=== PATIENT | male | born 1960 | race Caucasian/White ===

== ENCOUNTER 2017-11-12 11:30 | Observation (INO) | payer OTHER ==
[~2017-11-12] VITALS: Ht 181.6 cm; Wt 111.0 kg
[2017-11-12] VITALS (9 sets, daily range): BP systolic 144–183; BP diastolic 90–101; PULSE 69–89; RESP 16–20; TEMP 98.4–98.6; O2SAT 96–99
--- NOTE | 2017-11-12 11:41 | PD ---
HPI Chief Complaint: Pain: Acute or Chronic Time Seen by Provider: 11:39 Travel History International Travel<30 days: No Contact w/Intl Traveler<30days: No Traveled to known affect area: No History of Present Illness HPI 57 year old male came to the emergency room with history of left-sided chest pain especially with deep breath for past 2 days. Has also been having radiating pain down his left shoulder and left arm. Patient says that the left arm pain is not new for him. Years ago he had injury during playing baseball and his arm has always bothered him. However since he started getting the chest pain that's what concerned him. Pain is like a pressure when he takes a deep breath and is almost all over his left chest. Patient has history of high cholesterol and high blood pressure and he takes these medications once in 4-5 days in a very noncompliant fashion. His vital signs were relatively stable. He shouldn't had a stress test 15 years ago when it was normal. Nothing since then. [facility] Past Medical History Narrative Medical List of his past medical, surgical, social and family history is reviewed from the nursing note. Cardiovascular Problems: Yes (EXTENSIVE FAMILY H/O [place]) Social History Tobacco Use: Yes Allergies-Medications (Allergen,Severity, Reaction): Coded Allergies: No Known Allergies (Unverified , 11/12/17) Comments No known drug allergies. Reported Meds & Prescriptions Reported Meds & Active Scripts Active Reported Aspirin 325 Mg Tab 325 Mg PO DAILY Amlodipine (Amlodipine Besylate) 5 Mg Tab 5 Mg PO DAILY Lipitor (Atorvastatin Calcium) 10 Mg Tab 10 Mg PO DIRECTED Narrative Medication list of his home medications reviewed from the nursing note. Review of Systems Except as stated in HPI: all other systems reviewed are Neg Cardiovascular: Positive: Chest Pain or Discomfort Physical Exam Narrative GENERAL: Awake, alert, anxious SKIN: Focused skin assessment warm/dry. HEAD: Atraumatic. Normocephalic. EYES: Pupils equal and round. No scleral icterus. No injection or drainage. ENT: No nasal bleeding or discharge. Mucous membranes pink and moist. NECK: Trachea midline. No JVD. CARDIOVASCULAR: Regular rate and rhythm. No murmur appreciated. RESPIRATORY: No accessory muscle use. Clear to auscultation. Breath sounds equal bilaterally. GASTROINTESTINAL: Abdomen soft, non-tender, nondistended. Hepatic and splenic margins not palpable. MUSCULOSKELETAL: No obvious deformities. No clubbing. No cyanosis. No edema. NEUROLOGICAL: Awake and alert. No obvious cranial nerve deficits. Motor grossly within normal limits. Normal speech. PSYCHIATRIC: Appropriate mood and affect; insight and judgment normal. Data Data Last Documented VS Orders Orders Electrocardiogram (11/12/17 11:49) Basic Metabolic Panel (Bmp) (11/12/17 11:49) Ckmb (Isoenzyme) Profile (11/12/17 11:49) Complete Blood Count With Diff (11/12/17 11:49) D-Dimer (11/12/17 11:49) Magnesium (Mg) (11/12/17 11:49) Prothrombin Time / Inr (Pt) (11/12/17 11:49) Troponin I (11/12/17 11:49) Chest, Single Ap (11/12/17 11:49) Ecg Monitoring (11/12/17 11:49) Bilateral Bp Monitoring (11/12/17 11:49) Iv Access Insert/Monitor (11/12/17 11:49) Oximetry (11/12/17 11:49) Oxygen Administration (11/12/17 11:49) Sodium Chloride 0.9% Flush (Ns Flush) (11/12/17 12:00) CKMB (11/12/17 12:05) CKMB% (11/12/17 12:05) Amlodipine (Norvasc) (11/12/17 13:15) Admit Order (Ed Use Only) (11/12/17 14:04) Labs Laboratory Tests Test 11/12/17 12:05 White Blood Count 6.1 TH/MM3 Red Blood Count 5.44 MIL/MM3 Hemoglobin 15.6 GM/DL Hematocrit 47.1 % Mean Corpuscular Volume 86.6 FL Mean Corpuscular Hemoglobin 28.7 PG Mean Corpuscular Hemoglobin Concent 33.2 % Red Cell Distribution Width 12.7 % Platelet Count 227 TH/MM3 Mean Platelet Volume 7.0 FL Neutrophils (%) (Auto) 67.4 % Lymphocytes (%) (Auto) 23.8 % Monocytes (%) (Auto) 6.2 % Eosinophils (%) (Auto) 0.9 % Basophils (%) (Auto) 1.7 % Neutrophils # (Auto) 4.1 TH/MM3 Lymphocytes # (Auto) 1.4 TH/MM3 Monocytes # (Auto) 0.4 TH/MM3 Eosinophils # (Auto) 0.1 TH/MM3 Basophils # (Auto) 0.1 TH/MM3 CBC Comment DIFF FINAL Differential Comment Prothrombin Time 10.4 SEC Prothromb Time International Ratio 1.0 RATIO D-Dimer Quantitative (PE/DVT) 0.37 MG/L FEU Blood Urea Nitrogen 12 MG/DL Creatinine 0.97 MG/DL Random Glucose 95 MG/DL Calcium Level 9.1 MG/DL Magnesium Level 2.2 MG/DL Sodium Level 138 MEQ/L Potassium Level 4.0 MEQ/L Chloride Level 103 MEQ/L Carbon Dioxide Level 26.2 MEQ/L Anion Gap 9 MEQ/L Estimat Glomerular Filtration Rate 79 ML/MIN Total Creatine Kinase 241 U/L Creatine Kinase MB 3.2 NG/ML Troponin I LESS THAN 0.02 NG/ML MDM Medical Decision Making Medical Screen Exam Complete: Yes Emergency Medical Condition: Yes Medical Record Reviewed: Yes Interpretation(s) Twelve-lead EKG was reviewed by me. Normal sinus rhythm, normal axis, right bundle branch block. Heart rate of 73 bpm. Differential Diagnosis ACS, non-STEMI, PE Narrative Course 1:16 PM blood test results of back including the d-dimer. They're all negative. However given the kind of chest pain, patient's age and no recent stress test I have decided to admit him to the chest pain center so that he can be seen by the educational psychologist to rule out ACS. Patient agrees. When I went to see him his blood pressure was 180 systolic. I've ordered amlodipine 5 mg for him. Procedures EKG Prior to Arrival: No Diagnosis Primary Impression: Chest pain Qualified Codes: R07.9 - Chest pain, unspecified Additional Impressions: Hypertension Qualified Codes: I10 - Essential (primary) hypertension Noncompliance with medication regimen Admitting Information Admitting Physician Requests: Observation Emma Corey MD Nov 12, 2017 11:41
[2017-11-12] MEDS ORDERED: ASPI-183 PO (11:45)
[2017-11-12] MEDS ORDERED: AMLO5TAB2 PO (11:45)
[2017-11-12] MEDS ORDERED: LIPI10TA PO (11:45)
[2017-11-12] MEDS ORDERED: SODIUM CHLORIDE 0.9% FLUSH 10 ML FLUSH IVF PRN (12:00)
--- NOTE | 2017-11-12 12:09 | RADRPT ---
EXAM DATE/TIME: 11/12/2017 11:52 [facility] COMPARISON: No previous studies available for comparison. INDICATIONS : Chest discomfort for 1 week. MEDICAL HISTORY : None. SURGICAL HISTORY : None. ENCOUNTER: Initial ACUITY: 1 week PAIN SCORE: 3/10 LOCATION: Bilateral chest FINDINGS: A single view of the chest demonstrates the lungs to be symmetrically aerated without evidence of mas s, infiltrate or effusion. The cardiomediastinal contours are unremarkable. Osseous structures are intact. CONCLUSION: Normal examination. Fransisco Bridges Jr., MD on November 12, 2017 at 12:06 Board Certified Radiologist. This report was verified electronically.
[2017-11-12 12:20] LABS: AUTOMATED NEUTROPHIL # 4.1 TH/MM3 (1.8-7.7); BASOPHIL # 0.1 TH/MM3 (0-0.2); BASOPHIL % 1.7 % (0.0-2.0); EOSINOPHIL # 0.1 TH/MM3 (0-0.4); EOSINOPHIL % 0.9 % (0.0-4.0); HEMATOCRIT 47.1 % (39.0-51.0); HEMO FLAGS DIFF FINAL; LYMPH % 23.8 % (9.0-44.0); LYMPHOCYTE # 1.4 TH/MM3 (1.0-4.8); MEAN CELL VOLUME 86.6 FL (80.0-100.0); MEAN CORPUSCULAR HEMOGLOBIN 28.7 PG (27.0-34.0); MEAN CORPUSCULAR HGB CONC 33.2 % (32.0-36.0); MONO % 6.2 % (0.0-8.0); NEUT % 67.4 % (16.0-70.0); PLATELET COUNT 227 TH/MM3 (150-450); RED BLOOD COUNT 5.44 MIL/MM3 (4.50-5.90); RED CELL DISTRIBUTION WIDTH 12.7 % (11.6-17.2); WHITE BLOOD COUNT 6.1 TH/MM3 (4.0-11.0)
[2017-11-12 12:33] LABS: CHLORIDE 103 MEQ/L (98-107); SODIUM (NA) 138 MEQ/L (136-145)
[2017-11-12 12:37] LABS: PROTHROMBIN TIME - PATIENT 10.4 SEC (9.8-11.6)
[2017-11-12 12:38] LABS: ANION GAP 9 MEQ/L (5-15); BICARBONATE 26.2 MEQ/L (21.0-32.0); BLOOD UREA NITROGEN 12 MG/DL (7-18); MAGNESIUM 2.2 MG/DL (1.5-2.5)
[2017-11-12 12:41] LABS: GLOMERULAR FILTRATION RATE 79 ML/MIN (>89)
[2017-11-12 12:44] LABS: CREATINE KINASE 241 U/L (39-308)
[2017-11-12 12:57] LABS: CKMB 3.2 NG/ML (0.5-3.6)
--- NOTE | 2017-11-12 13:05 | EKG ---
Date Performed: 11/12/2017 Time Performed: 12:07:30 PTAGE: 57 years EKG: Sinus rhythm INFERIOR MYOCARDIAL INFARCTION ABNORMAL ECG NO PREVIOUS TRACING DOCTOR: Kenyon Bruno Interpretating Date/Time 11/12/2017 13:03:52
[2017-11-12] MEDS ORDERED: amLODIPine BESYLATE 5 MG TAB PO ONE ×2 (13:15→15:15)
[2017-11-12] MEDS ORDERED: MORPHINE SULFATE 4 MG/ML INJ IV PUSH PRN (14:15)
[2017-11-12] MEDS ORDERED: ONDANSETRON HCL 4 MG/2 ML VIAL IV PUSH PRN (14:15)
[2017-11-12] MEDS ORDERED: SODIUM CHLORIDE 0.9% FLUSH 10 ML FLUSH IV FLUSH PRN (14:15)
[2017-11-12] MEDS ORDERED: ACETAMINOPHEN/HYDROcodone 325 MG/7.5 MG TAB PO PRN (14:15)
[2017-11-12] MEDS ORDERED: NITROGLYCERIN 0.4 MG SL 25 TABS/BTL SL PRN (14:15)
[2017-11-12] MEDS ORDERED: ACETAMINOPHEN 500 MG CPLT PO PRN (14:15)
[2017-11-12] MEDS ORDERED: TEMAZEPAM 15 MG CAP PO PRN (14:15)
--- NOTE | 2017-11-12 14:46 | HHI.HP ---
[facility] Primary Care Physician Unknown Admission Diagnosis chest pain, rule out ACS Diagnoses: (1) Chest pain Diagnosis: Principal (2) Accelerated hypertension Diagnosis: Principal Chief Complaint: Chest pain Travel History International Travel<30 Days: No Contact w/Intl Traveler <30 Da: No Traveled to Known Affected Are: No History of Present Illness 57 year-old male with known history of hypertension, hyperlipidemia who presented to hospital because of chest discomfort. Patient indicates that he started developing chest discomfort on Saturday night after he had been fishing over the weekend as well as putting up\at his house. He indicates that the pain originates in his left scapular region and radiates out to his anterior chest, into his left shoulder and down his left arm. He describes it as a dull ache which is a 1/10 on a pain scale. Patient states that the pain was not antagonized with any movement or exertion. States that is worse when he takes a deep breath. Patient denies any nausea, vomiting, diaphoresis, shortness of breath, dyspnea, lightheadedness, dizziness. Because the pain would not go away he came to emergency department for evaluation. On presentation he was noted to have accelerated hypertension. He indicates that last cardiology workup that he had done was 15 years ago in the [facility]. At that time he had an exercise stress test which was normal. At the present time he still experiencing the pain whenever he takes a deep breath. It was discussed with the patient, observation into the hospital with stress test. Patient is in agreement at this time. Review of Systems Cardiovascular: COMPLAINS OF: Chest pain Musculoskeletal: COMPLAINS OF: Joint pain Except as stated in HPI: all other systems reviewed are Neg Past Family Social History Past Medical History Hypertension Hyperlipidemia Past Surgical History No previous surgeries Reported Medications Reported Meds & Active Scripts Active Reported Aspirin 325 Mg Tab 325 Mg PO DAILY Amlodipine (Amlodipine Besylate) 5 Mg Tab 5 Mg PO DAILY Lipitor (Atorvastatin Calcium) 10 Mg Tab 10 Mg PO DIRECTED Allergies: Coded Allergies: No Known Allergies (Unverified , 11/12/17) Family History Reviewed is significant for father having heart disease with bypass surgery at age 65. Mother with diabetes and heart disease. Social History Patient does drink 1 alcoholic beverage daily. Denies any tobacco or illicit drugs Physical Exam Vital Signs Vital Signs Date Time Temp Pulse Resp B/P (MAP) Pulse Ox O2 Delivery O2 Flow Rate FiO2 11/12/17 13:59 73 16 171/96 (121) 98 Nasal Cannula 2.00 11/12/17 13:42 170/95 (120) 11/12/17 12:25 76 16 181/91 (121) 99 Nasal Cannula 2.00 11/12/17 12:24 16 99 Nasal Cannula 2.00 11/12/17 12:00 71 16 144/92 (109) 99 Nasal Cannula 2.00 183/101 (128) 11/12/17 11:54 98 Nasal Cannula 2.00 11/12/17 11:39 18 11/12/17 11:32 98.6 69 18 167/90 (115) 98 Physical Exam GENERAL: Well-developed, well-nourished, in no acute distress. alert and orientated HEENT: Head is normocephalic without any lesions or masses noted. Facial features are symmetric. Eyes: Pupils equal round reactive to light. Extraocular muscles are intact. Conjunctivae were clear. Oropharyngeal: Pharynx without any erythema edema. Tongue is midline without deviation. Buccal mucosa is moist without any masses or lesions NECK: Supple without any masses. Trachea midline no deviation. No JVD, no bruits are appreciated CARDIAC: Regular rhythm, regular rate. S1/S2 are heard. No murmurs gallops or rubs. LUNGS: Clear to auscultation bilaterally. No wheeze, rhonchi or rales. No use of accessory muscles on inspiration or expiration. ABDOMEN: Soft, nontender. Nondistended. Bowel sounds heard in all 4 quadrants. No organomegaly or masses. Negative rebound, negative guarding EXTREMITIES: No edema, pulses are equal bilaterally. No cyanosis or clubbing NEUROLOGY: Mood and affect appear appropriate. Cranial nerves II through XII grossly intact. Muscle strength 5/5 in upper and lower extremities bilaterally. Deep tendon reflexes are 2+ in upper and lower extremities bilaterally. Laboratory Laboratory Tests Test 11/12/17 12:05 White Blood Count 6.1 Red Blood Count 5.44 Hemoglobin 15.6 Hematocrit 47.1 Mean Corpuscular Volume 86.6 Mean Corpuscular Hemoglobin 28.7 Mean Corpuscular Hemoglobin Concent 33.2 Red Cell Distribution Width 12.7 Platelet Count 227 Mean Platelet Volume 7.0 Neutrophils (%) (Auto) 67.4 Lymphocytes (%) (Auto) 23.8 Monocytes (%) (Auto) 6.2 Eosinophils (%) (Auto) 0.9 Basophils (%) (Auto) 1.7 Neutrophils # (Auto) 4.1 Lymphocytes # (Auto) 1.4 Monocytes # (Auto) 0.4 Eosinophils # (Auto) 0.1 Basophils # (Auto) 0.1 CBC Comment DIFF FINAL Differential Comment Prothrombin Time 10.4 Prothromb Time International Ratio 1.0 D-Dimer Quantitative (PE/DVT) 0.37 Blood Urea Nitrogen 12 Creatinine 0.97 Random Glucose 95 Calcium Level 9.1 Magnesium Level 2.2 Sodium Level 138 Potassium Level 4.0 Chloride Level 103 Carbon Dioxide Level 26.2 Anion Gap 9 Estimat Glomerular Filtration Rate 79 Total Creatine Kinase 241 Creatine Kinase MB 3.2 Troponin I LESS THAN 0.02 Result Diagram: 11/12/17 1205 11/12/17 1205 Imaging Last Impressions Chest X-Ray 11/12/17 1149 Signed Impressions: Service Date/Time: Sunday, November 12, 2017 11:52 - CONCLUSION: Normal examination. Fransisco Bridges Jr., MD [place] VTE Risk Assessment Caprini VTE Risk Assessment: Mod/High Risk (score >= 2) Caprini Risk Assessment Model Point Value = 1 Point Value = 2 Point Value = 3 Point Value = 5 Age 41-60 Minor surgery BMI > 25 kg/m2 Swollen legs Varicose veins or History of unexplained or recurrent spontaneous Oral contraceptives or hormone replacement Sepsis (< 1 month) Serious lung disease, including pneumonia (< 1 month) Abnormal pulmonary function Acute myocardial infarction Congestive heart failure (< 1 month) History of inflammatory bowel disease Medical patient at bed rest Age 61-74 Arthroscopic surgery Major open surgery (> 45 min) Laparoscopic surgery (> 45 min) Malignancy Confined to bed (> 72 hours) Immobilizing plaster cast Central venous access Age >= 75 History of VTE Family history of VTE Factor V Leiden Prothrombin [id number] Lupus anticoagulant Anticardiolipin antibodies Elevated serum homocysteine Heparin-induced thrombocytopenia Other congenital or acquired thrombophilia Stroke (< 1 month) Elective arthroplasty Hip, pelvis, or leg fracture Acute spinal cord injury (< 1 month) Prophylaxis Regimen Total Risk Factor Score Risk Level Prophylaxis Regimen 0-1 Low Early ambulation 2 Moderate Order ONE of the following: *Sequential Compression Device (SCD) *Heparin 5000 units SQ BID 3-4 Higher Order ONE of the following medications: *Heparin 5000 units SQ TID *Enoxaparin/Lovenox 40 mg SQ daily (WT < 150 kg, CrCl > 30 mL/min) *Enoxaparin/Lovenox 30 mg SQ daily (WT < 150 kg, CrCl > 10-29 mL/min) *Enoxaparin/Lovenox 30 mg SQ BID (WT < 150 kg, CrCl > 30 mL/min) AND/OR *Sequential Compression Device (SCD) 5 or more Highest Order ONE of the following medications: *Heparin 5000 units SQ TID (Preferred with Epidurals) *Enoxaparin/Lovenox 40 mg SQ daily (WT < 150 kg, CrCl > 30 mL/min) *Enoxaparin/Lovenox 30 mg SQ daily (WT < 150 kg, CrCl > 10-29 mL/min) *Enoxaparin/Lovenox 30 mg SQ BID (WT < 150 kg, CrCl > 30 mL/min) AND *Sequential Compression Device (SCD) Assessment and Plan Assessment and Plan Chest pain, atypical Patient with increased risk factors include age, hypertension, hyponatremia, family history of heart disease Thus far patient ruled out for acute coronary event. We'll continue to trend serial cardiac enzymes and EKGs Original EKG does not show any acute abnormality. Does appear to have Q waves in leads II and aVF. Possible old infarct. Right bundle branch block Nuclear stress test was performed and did not indicate any ischemia with low risk Continue aspirin Nitroglycerin as needed Accelerated hypertension Continue home medication Continue amlodipine 10 mg a day Counseled patient on medication compliance Hyperlipidemia Discussed with patient the need to take his statin DVT prevention Sequential compression devices Discharge disposition Discharge home in stable condition if stress test is negative Activity: Ad neeraj. Diet: Healthy heart diet Medications per medication reconciliation Follow-up with primary medical doctor in one week Problem Qualifiers (1) Chest pain: Qualified Codes: R07.9 - Chest pain, unspecified Sherif Muro Nov 12, 2017 14:46
[2017-11-12 15:06] LABS: CREATINE KINASE 186 U/L (39-308)
[2017-11-12 15:19] LABS: CKMB 2.5 NG/ML (0.5-3.6)
--- NOTE | 2017-11-12 16:18 | EKG ---
Date Performed: 11/12/2017 Time Performed: 14:38:33 PTAGE: 57 years EKG: Sinus rhythm INFERIOR MYOCARDIAL INFARCTION ABNORMAL ECG No significant change from prior electrocardiogram. PREVIOUS TRACING : 11/12/2017 12.07 DOCTOR: Kenyon Bruno Interpretating Date/Time 11/12/2017 16:17:19
[2017-11-12] MEDS ORDERED: REGADENOSON INJ 0.4 MG/5 ML SYR IV ONE (17:19)
--- NOTE | 2017-11-12 18:37 | RADRPT ---
EXAM DATE/TIME: 11/12/2017 16:57 [facility] COMPARISON: No previous studies available for comparison. INDICATIONS : Left sided chest pain. Right bundle branch block. Angina. DOSE: 35 mCi Tc99m Myoview at stress. 11 mCi Tc99m Myoview at rest. 0.4 mg Lexiscan STRESS SYMPTOMS: None noted. EJECTION FRACTION: 66% MEDICAL HISTORY : Hypertension. SURGICAL HISTORY : Tonsillectomy. ENCOUNTER: Initial ACUITY: 2 days PAIN SCALE: 3/10 LOCATION: Left chest TECHNIQUE: The patient underwent pharmacologic stress with infusion of prescribed dose. Continuous ECG tracing was monitored during stress. Gated SPECT imaging was performed after stress and conventional SPECT i maging was performed at rest. The examination was performed on a SPECT/CT scanner, both attenuation and non-corrected datasets were reviewed. FINDINGS: DISTRIBUTION: The maximum perfused segment at stress is in the septal wall. PERFUSION STUDY: The pattern of perfusion at stress is within normal limits, with regional variations. Within 30%. N o evidence of redistribution. The summed stress score is 1. GATED STUDY: There is intact wall motion and thickening without hypokinetic or dyskinetic segments. CONCLUSION: 1. No evidence of stress-induced ischemia. 2. Intact wall motion with 66% ejection fraction. RISK CATEGORY: Low (<1% Annual Mortality Rate) Fransisco Mcgowan MD on November 12, 2017 at 18:33 Board Certified Radiologist. This report was verified electronically.
--- NOTE | 2017-11-12 19:01 | HHI.DCPOC ---
Discharge Care Plan Diagnosis: (1) Chest pain (2) Accelerated hypertension Your Health Problems Are: Chest Pain Goals to Promote Your Health * To prevent worsening of your condition and complications * To maintain your health at the optimal level Directions to Meet Your Goals Take your medications as prescribed Follow your dietary instruction Follow activity as directed Keep your appointments as scheduled Take your immunizations and boosters as scheduled If your symptoms worsen call your PCP, if no PCP go to Urgent Care Center or Emergency Room Smoking is Dangerous to Your Health. Avoid second hand smoke Call the 24-hour hour crisis hotline for domestic abuse at Sherif Muro Nov 12, 2017 19:01
[2017-11-12] MEDS ORDERED: SODIUM CHLORIDE 0.9% FLUSH 10 ML FLUSH IV FLUSH SCH (21:00)
[2017-11-13] MEDS ORDERED: ATORVASTATIN 10 MG TAB PO SCH (09:00)
[2017-11-13] MEDS ORDERED: ASPIRIN 325 MG TAB PO SCH ×2 (09:00)
--- NOTE | 2017-11-13 09:53 | TR ---
Date Performed: 11/12/2017 Time Performed: 17:44:25 DOCTOR: Umair Tamez DRUG LIST: CLINICAL HISTORY: REASON FOR TEST: REASON FOR ENDING: OBSERVATION: CONCLUSION: Lexiscan stress test was performed under standard four minute protocol. Radionuclid e was injected one minute prior to ending the test. No electrocardiographic abormalities were present to suggest ischemia. Nuclear imaging and interpretation are pending. COMMENTS:
== END 2017-11-12 19:00 | disposition home or self-care (01) ==
LOC: PHED 11:30 → PHEDA 14:05 → PH3A 14:49
PROVIDERS: ADMIT Hospitalist; ATTEND Hospitalist
DX: R07.89 Other chest pain (principal); I10 Essential (primary) hypertension; M25.50 Pain in unspecified joint; M79.602 Pain in left arm; I45.10 Unspecified right bundle-branch block; R94.31 Abnormal electrocardiogram [ECG] [EKG]; E78.00 Pure hypercholesterolemia, unspecified; Z79.899 Other long term (current) drug therapy; Z79.82 Long term (current) use of aspirin; Z82.49 Family history of ischemic heart disease and other diseases of the circulatory system; Z91.14 Patient's other noncompliance with medication regimen
CPT/HCPCS: 71010; 78452; 80048; 82550; 82552; 83735; 84484; 85025; 85379; 85610; 93005; 93017; 99285; A9502; G0378; J2785